=== PATIENT | male | born 1960 | race Caucasian/White ===

== ENCOUNTER 2018-08-07 08:01 | Day surgery (SDC) | payer OTHER ==
[2018-08-07] MEDS ORDERED: LIDOCAINE HCL 2% PF 100MG/5ML VIAL IJ ONE (08:48)
[2018-08-07] MEDS ORDERED: PROPOFOL 200 MG/20 ML VIAL IV ONE (08:48)
[2018-08-07] MEDS ORDERED: LACTATED RINGERS 1,000 ML IV.SOLN IV ONE (08:48)
--- NOTE | 2018-08-22 13:43 | GI Report ---
PLANNED PROCEDURE: Colonoscopy with polypectomy. SURGEON: Dae Simmons M.D., Santos.CMariana INDICATION FOR PROCEDURE: The patient is a 57-year-old man who is referred for colonoscopy. He apparently had a couple polyps removed at the [facility] 10 years ago. He denies any interval change in stools. He is referred for follow-up evaluation. PROCEDURE MEDICATION: Propofol anesthesia. DESCRIPTION OF PROCEDURE: An Olympus video colonoscope was advanced through the rectum. He has moderate diverticular disease of the sigmoid and descending colon. There is an area in the sigmoid and an area in the transverse colon where there is a tattoo from previous polypectomy. I saw no residual polyp at either site. The colonoscope was slowly advanced all the way to the cecum. The appendiceal orifice was normal. The terminal ileum was normal. On slow withdrawal through the cecum, ascending colon, transverse colon no obvious intraluminal lesions were noted. In the descending colon and sigmoid a lot of redundancy and diverticular disease in the rectum. The patient has a 4 mm polyp removed with a cold snare. Retroflexion was otherwise unremarkable. The patient tolerated the procedure well. FINDINGS: 1. Rectal polyp removed. 2. Two tattoos from previous polypectomies with no obvious residual polyp noted. 3. Moderate diverticular disease of the sigmoid and descending colon. RECOMMENDATIONS: 1. High fiber diet. 2. Pending the pathology of the polyp consider relooking at his colon in 5-10 years; 5 years if it is adenomatous, 10 years if it is just hyperplastic. DAE SIMMONS M.D., F.A.C.P. EMRE/praveen R: 08/21/18 Job#: [id number] Cc: Abdullahi Russell M.D. [address] [place] [id number] Sent via ] MAISHA
== END 2018-08-07 10:37 | disposition home or self-care (01) ==
LOC: OPSURG 08:01
PROVIDERS: ATTEND Internal Medicine Gastroenterology
DX: Z12.11 Encounter for screening for malignant neoplasm of colon (principal); D12.8 Benign neoplasm of rectum; K57.30 Diverticulosis of large intestine without perforation or abscess without bleeding; Z86.010 Personal history of colon polyps
CPT/HCPCS: 45385; J2001; J2704; J7120; S1016